=== PATIENT | female | born 1940 | race African-American/Black ===

== ENCOUNTER → 2017-01-27 | Outpatient (CLI) | payer MEDICARE | END | disposition home or self-care (01) | LOC: PCVCCLINIC 10:13 | PROVIDERS: ATTEND Internal Medicine | DX: I10 Essential (primary) hypertension (principal); J30.9 Allergic rhinitis, unspecified; E78.5 Hyperlipidemia, unspecified; R00.2 Palpitations | CPT/HCPCS: 80061; G0463 ==

== ENCOUNTER → 2018-01-26 | Outpatient (CLI) | payer MEDICARE | END | disposition home or self-care (01) | LOC: PCVCCLINIC 10:49 | DX: I10 Essential (primary) hypertension (principal); E78.5 Hyperlipidemia, unspecified | CPT/HCPCS: 80061 ==